=== PATIENT | male | born 1995 | race African-American/Black ===

== ENCOUNTER 2017-07-18 20:22 | Emergency (ER) | payer OTHER ==
[2017-07-18 22:53] LABS: ABS Basophils 0 10^3/ul (0-0.2); ABS Eosinophils 0 10^3/ul (0-0.6); ABS Lymphocytes 0.9 10^3/ul (1.0-4.8); ABS Monocytes 0.4 10^3/ul (0-0.8); ABS Neutrophils 10.1 10^3/ul (1.5-7.7); ABS Nucleated RBC 0 10^3/ul; Eosinophil % 0.1 % (0-6); Hematocrit 45 % (42-52); Hemoglobin 15.1 g/dl (14.0-18.0); Lymphocyte % 7.6 % (25-47); Mean Corpuscular HGB Conc 34 g/dl (31-36); Mean Corpuscular Hemoglobin 28 pg (27-31); Mean Corpuscular Volume 82 fL (80-94); Mean Platelet Volume 9.5 um3 (7.4-10.4); Nucleated Red Blood Cells % 0.1; Platelet Count 232 10^3/ul (150-450); Red Blood Count 5.51 10^6/ul (4.0-5.4); Red Cell Distribution Width 15 % (10.5-15); White Blood Count 11.4 10^3/ul (3.5-10.8)
[2017-07-18 23:09] LABS: EGFR Non-African American 79.5 (>60)
[2017-07-18] MEDS ORDERED: Ondansetron INJ* 2 MG/ML VIAL IV ONE (23:25)
[2017-07-18] MEDS ORDERED: NS 0.9% 1000 ML* 1,000 ML IV ONE (23:25)
[2017-07-19] MEDS ORDERED: Ketorolac INJ* 30 MG/ML 1 ML VIAL IV PUSH ONE (00:03)
--- NOTE | 2017-07-19 00:08 | ED ---
GI/ HPI - HPI Summary HPI Summary: 22-year-old male presents with generalized abdominal pain and vomiting since this morning. He states he woke up with a decreased appetite. He admits to nausea. He states he felt like he had a gas pain in the morning. He states his abdominal pain is generalized. He denies any pain with urination. He denies any flank pain. He denies any known fevers. He denies any sore throat or cough. He denies any diarrhea or abdominal surgeries. He took some type of Gas-X for his symptoms that did not improve. He states he has been sleeping a lot today. - History of Current Complaint Chief Complaint: EDAbdPain Time Seen by Provider: 07/18/17 23:15 Stated Complaint: ABD PAIN/VOMITING Pain Intensity: 10 - Allergy/Home Medications Allergies/Adverse Reactions: Allergies Allergy/AdvReac Type Severity Reaction Status Date / Time No Known Allergies Allergy Verified 12/27/16 15:17 PMH/Surg Hx/FS Hx/Imm Hx Endocrine/Hematology History: Denies: Hx Diabetes Cardiovascular History: Denies: Hx Hypertension, Hx Pacemaker/ICD History: Denies: Hx Renal Disease Sensory History: Denies: Hx Hearing Aid Psychiatric History: Denies: Hx Panic Disorder - Surgical History Surgery Procedure, Year, and Place: ATHROSCOPIC REPAIR RIGHT SHOULDER Infectious Disease History: No Infectious Disease History: Denies: Traveled Outside the in Last 30 Days - Social History Alcohol Use: None Substance Use Type: Reports: None Smoking Status (MU): Never Smoked Tobacco Review of Systems Negative: Fever Negative: Chest Pain Negative: Shortness Of Breath Positive: Abdominal Pain, Vomiting, Nausea. Negative: Diarrhea All Other Systems Reviewed And Are Negative: Yes Physical Exam Triage Information Reviewed: Yes Vital Signs On Initial Exam: Initial Vitals Temp Pulse Resp BP Pulse Ox 97.0 F 74 16 128/70 99 07/18/17 20:25 07/18/17 20:25 07/18/17 20:25 07/18/17 20:25 07/18/17 20:25 Vital Signs Reviewed: Yes Appearance: Positive: Well-Appearing Skin: Positive: Warm, Dry Head/Face: Positive: Normal Head/Face Inspection Eyes: Positive: Normal, EOMI, ANG, Conjunctiva Clear ENT: Positive: Normal ENT inspection, Pharynx normal, TMs normal Respiratory/Lung Sounds: Positive: Clear to Auscultation, Breath Sounds Present Cardiovascular: Positive: Normal, RRR Abdomen Description: Positive: Soft, Other: - mild diffuse tenderness Bowel Sounds: Positive: Present Musculoskeletal: Positive: Normal Neurological: Positive: Normal Psychiatric: Positive: Normal Diagnostics - Vital Signs Vital Signs Temp Pulse Resp BP Pulse Ox 07/18/17 20:25 97.0 F 74 16 128/70 99 - Laboratory Lab Results: Lab Results 07/18/17 07/18/17 07/18/17 Range/Units 22:31 22:31 22:31 WBC 11.4 H (3.5-10.8) 10^3/ul RBC 5.51 H (4.0-5.4) 10^6/ul Hgb 15.1 (14.0-18.0) g/dl Hct 45 (42-52) % MCV 82 (80-94) fL MCH 28 (27-31) pg MCHC 34 (31-36) g/dl RDW 15 (10.5-15) % Plt Count 232 (150-450) 10^3/ul MPV 9.5 (7.4-10.4) um3 Neut % (Auto) 88.0 H (38-83) % Lymph % (Auto) 7.6 L (25-47) % Whitley % (Auto) 3.9 (0-7) % Eos % (Auto) 0.1 (0-6) % Baso % (Auto) 0.4 (0-2) % Absolute Neuts (auto) 10.1 H (1.5-7.7) 10^3/ul Absolute Lymphs (auto) 0.9 L (1.0-4.8) 10^3/ul Absolute Monos (auto) 0.4 (0-0.8) 10^3/ul Absolute Eos (auto) 0 (0-0.6) 10^3/ul Absolute Basos (auto) 0 (0-0.2) 10^3/ul Absolute Nucleated RBC 0 10^3/ul Nucleated RBC % 0.1 Sodium 131 L (133-145) mmol/L Potassium 4.4 (3.5-5.0) mmol/L Chloride 98 L (101-111) mmol/L Carbon Dioxide 25 (22-32) mmol/L Anion Gap 8 (2-11) mmol/L BUN 16 (6-24) mg/dL Creatinine 1.17 (0.67-1.17) mg/dL Est GFR ( Amer) 102.2 (>60) Est GFR (Non-Af Amer) 79.5 (>60) BUN/Creatinine Ratio 13.7 (8-20) Glucose 117 H (70-100) mg/dL Lactic Acid 1.2 (0.5-2.0) mmol/L Calcium 10.5 H (8.6-10.3) mg/dL Total Bilirubin 0.70 (0.2-1.0) mg/dL AST 23 (13-39) U/L ALT 25 (7-52) U/L Alkaline Phosphatase 81 (34-104) U/L C-Reactive Protein 1.02 (< 5.00) mg/L Total Protein 8.3 (6.4-8.9) g/dL Albumin 4.9 (3.2-5.2) g/dL Globulin 3.4 (2-4) g/dL Albumin/Globulin Ratio 1.4 (1-3) Lipase 21 (11.0-82.0) U/L Result Diagrams: 18 22:31 18 22:31 Lab Statement: Any lab studies that have been ordered have been reviewed, and results considered in the medical decision making process. Re-Evaluation - Re-Evaluation First Eval Re-Evaluation Time: 00:35 Change: Improved Comment: no longer nausous but pain present in LUQ so will try GI cocktail GIGU Course/Dx - Course Course Of Treatment: 22-year-old male presents with generalized abdominal pain and vomiting since this morning. He states he woke up with a decreased appetite. He admits to nausea. He states he felt like he had a gas pain in the morning. He states his abdominal pain is generalized. He denies any pain with urination. He denies any flank pain. He denies any known fevers. He denies any sore throat or cough. He denies any diarrhea or abdominal surgeries. He took some type of Gas-X for his symptoms that did not improve. He states he has been sleeping a lot today. On exam has generalized mild abdominal pain. Lungs clear to auscultation. Labs wbc 11.4 crp normal. Gave fluids and Zofran and feeling better. We'll discharge her Zofran. Likely gastroenteritis. told if any changes to return. Patient understands agrees plan. - Diagnoses Differential Diagnoses - Male: Gastroenteritis (Bacterial), Gastroenteritis ( Viral), Urinary Tract Infection Provider Diagnoses: Abdominal pain, Vomiting Discharge - Sign-Out/Discharge Documenting (check all that apply): Discharge - Discharge Plan Condition: Good Disposition: HOME Prescriptions: Ondansetron TAB* [Zofran 4 MG Tab*] 4 mg PO Q6H PRN #16 tab PRN Reason: Nausea Patient Education Materials: Acute Nausea and Vomiting (ED) Forms: *School Release [facility] - Additional Instructions: Can take Zofran every 6 hours as needed for nausea Drink small amounts of fluid as tolerated When able to eat follow BRAT diet: Bananas, rice, applesauce, toast Take ibuprofen or Tylenol for pain as needed every 6 hours Follow up with primary within 5 days Return to ED if develop fever that does not respond to Tylenol or ibuprofen, severe abdominal pain, or any new or worsening symptoms - Billing Disposition and Condition Condition: GOOD Disposition: HOME
[2017-07-19] MEDS ORDERED: Al Hydrox/Mg Hydrox/Simet LIQ* 30 ML UDC PO ONE (00:34)
[2017-07-19] MEDS ORDERED: Lidocaine 2% VISCOUS* 15 ML UDC PO ONE (00:34)
[2017-07-19] MEDS ORDERED: O ndansetron ODT 4MG 2TAB PRPK 4 MG PAK PO ONE (01:05)
[2017-07-19 01:23] VITALS: BP 121/51
== END 2017-07-19 01:23 | disposition home or self-care (01) ==
LOC: ED 20:22
DX: R11.2 Nausea with vomiting, unspecified (principal); R10.9 Unspecified abdominal pain
CPT/HCPCS: 36415; 80053; 83605; 83690; 85025; 86140; 96374; 96375; 99283; A9270-GY; J1885; J2405